=== PATIENT | male | born 1980 | race African-American/Black ===

== ENCOUNTER 2021-07-11 15:30 | Emergency (ER) | payer MEDICAID, SELFPAY ==
--- NOTE | 2021-07-11 | ECG_ITS ---
Test Reason : CHEST PAIN Blood Pressure : / mmHG Vent. Rate : 074 BPM Atrial Rate : 074 BPM P-R Int : 154 ms QRS Dur : 090 ms QT Int : 392 ms P-R-T Axes : 055 035 048 degrees QTc Int : 435 ms Normal sinus rhythm Possible Lateral infarct , age undetermined Inferior infarct (cited on or before 18-JUL-2020) Abnormal ECG When compared with ECG of 02-AUG-2020 04:57, Left anterior fascicular block is no longer Present ST no longer elevated in Inferior leads Non-specific change in ST segment in Anterior leads T wave inversion no longer evident in Inferior leads T wave inversion no longer evident in Lateral leads Referred By: Generic ED Physician Electronically Signed By:ELENO OSBORN
--- NOTE | ~2021-07-11 | CT_ITS ---
EXAMINATION: CT ABDOMEN AND PELVIS WITHOUT CONTRAST CLINICAL INFORMATION: Hematuria and elevated creatinine COMPARISON: None TECHNIQUE: Multidetector volumetric imaging was performed from the superior aspect of the liver through the pubic symphysis. Sagittal and coronal reformatted images were obtained on the technologist's workstation. This CT examination was performed using dose optimization techniques as appropriate, variously including the following: *Automated exposure control *Adjustment of mA and/or kV according to patient size (this includes techniques or standardized protocols for targeted exams where dose is matched to indication/reason for exam; i.e. extremities or head) *Use of iterative reconstruction technique DLP: 721 mGy-cm FINDINGS: LUNG BASES: The visualized lung bases are unremarkable. LIVER, GALLBLADDER, AND BILIARY TREE: The liver is normal in size, shape, and attenuation. No focal hepatic lesion or biliary ductal dilatation is present. The gallbladder is unremarkable with no evidence of radiopaque gallstones, gallbladder wall thickening, or obvious pericholecystic inflammatory changes. PANCREAS: Unremarkable. SPLEEN: Unremarkable. ADRENAL GLANDS: Unremarkable. KIDNEYS AND URETERS: The kidneys are normal in size, shape, and attenuation. No hydronephrosis, hydroureter, or calculi seen. No perinephric stranding. BLADDER: Unremarkable. GASTROINTESTINAL TRACT: The small and large bowel are unremarkable. The appendix is unremarkable. ABDOMINAL WALL: No significant hernia is appreciated. LYMPH NODES: Normal. VASCULAR: Unremarkable. PELVIC VISCERA: Unremarkable. OSSEOUS STRUCTURES: Unremarkable. CT/CT abdomen pelvis wo con IMPRESSION: No significant abnormality.
--- NOTE | ~2021-07-11 | XR_ITS ---
EXAMINATION: XR CHEST CLINICAL INFORMATION: Chest pain. COMPARISON: Chest done on 08/02/2020. TECHNIQUE: Frontal view of the chest was obtained. FINDINGS: No significant abnormality is noted involving the heart, lungs, mediastinum, bony thorax or soft tissues. XR/XR chest 1V IMPRESSION: Unremarkable examination.
[2021-07-11 15:34] VITALS: BP 140/79; PULSE 83; RESP 20; TEMP 37.1; O2SAT 96; BMI 36.2
[2021-07-11 16:00] VITALS: PULSE 73; RESP 18; O2SAT 100
[2021-07-11 16:21] LABS: MANUAL DIFF FLAG NO
[2021-07-11 16:22] LABS: Basophils Percent Auto 0.2 % (0-2); Eosinophils Absolute Auto 0.1 X10*3/uL (0.0-0.4); Eosinophils Percent Auto 0.6 % (0-4); Hematocrit 45.7 % (42-52); Hemoglobin 15.3 g/dl (14.0-18.0); Imm Gran Abs Auto 0.03 X10*3/uL (0.00-0.03); Imm Gran Pct Auto 0.3 % (0.0-0.4); Lymphocytes Absolute Auto 1.9 X10*3/uL (1.2-4.9); Lymphocytes Percent Auto 17.2 % (20-40); Mean Corpuscular HGB Conc 33.5 g/dl (31.0-36.0); Mean Corpuscular Volume 86.7 fL (80-98); Mean Platelet Volume 9.5 fL (9.4-12.4); Neutrophils Absolute Auto 7.9 X10*3/uL (2.0-8.3); Neutrophils Percent Auto 72.7 % (45-73); Platelet Count 277 X10*3/uL (160-400); Red Blood Count 5.27 X10*6/uL (4.60-5.80); Red Cell Distribution Width 13.3 % (11.0-16.0); White Blood Count 10.8 X10*3/uL (4.8-10.8)
--- NOTE | 2021-07-11 16:35 | ED.CHESTPAIN ---
HPI - Chest Pain General Chief Complaint: Chest Pain Stated Complaint: chest pain Time Seen by Provider: 07/11/21 16:14 Source: patient Mode of arrival: ambulatory Limitations: no limitations History of Present Illness HPI narrative: Patient comes emergency room complaining of chest pain. Patient states yesterday around 16:00 he started having right-sided arm numbness and tingling, subsequently substernal chest pain, intense GERD sensation. Patient called the ambulance, was taken to [facility]. Patient states that he waited too long to be seen, left before being seen, walked to [facility]. Patient states the waiting time was very long, and was not seen either. Patient states the chest pain has been intermittent since yesterday, at this time 04/06. Yesterday in the afternoon patient took 2 nitroglycerin tablets. Today he did not take any medication. 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 Patient states that he is supposed to be on medications for his heart but is not taking anything other than nitroglycerin p.r.n.. Related Data Allergies Allergy/AdvReac Type Severity Reaction Status Date / Time Penicillins [PENICILLINS] Allergy Severe BLOODY Verified 07/11/21 15:39 STOOL Review of Systems Review of Systems: Constitutional : No Weight loss, No Fever, No Chills, No Night Sweats, No Fatigue, No Malaise ENT/Mouth : No Hearing loss, No Ear Pain, No Nasal Congestion, No Sinus Pain, No Hoarseness, No sore throat, No Rhinorrhea, No Swallowing Difficulty Eyes: No Eye Pain, No Swelling, No Redness, No Foreign Body, No Discharge, No Vision Changes Cardiovascular : Complaining of right arm numbness and tingling, substernal chest pain, No SOB, No Dyspnea on Exertion, No Orthopnea, No Edema, No Palpitations Respiratory : No Cough, No Sputum, No Wheezing, No Smoke Exposure, No Dyspnea Gastrointestinal : No Nausea, No Vomiting, No Diarrhea, No Constipation, No abdominal Pain, No Hematochezia, No Melena Genitourinary : no irregular bleeding, No Dysuria, No Urinary Frequency, No Hematuria, No Urinary Incontinence, No Urgency, No Flank Pain, No Urinary Flow Changes, No Hesitancy Musculoskeletal : No joint pain, No Myalgias, No Joint Swelling Skin : No Skin Lesions, No rash Neuro : No Weakness, No Numbness, No Paresthesias, No Loss of Consciousness, No Dizziness, No Headache Psych : No Anxiety/Panic, No Depression, No SI/HI/AH/VH, No Social Issues, Heme/Lymph: No Bruising, No Bleeding,No Lymphadenopathy Endocrine : No Polyuria, No Polydipsia, No Temperature Intolerance [facility] Past Medical History Medical History FH: heart attack Hypertension Social History Social History Alcohol intake: current Alcohol intake frequency: 0-2 drinks per day Alcohol type: beer, wine and hard liquor Patient Tobacco Use Status: Current everyday Tobacco user Smoked in Last 30 Days: Yes Use of substances other than those prescribed or required for medical reasons: Yes Substance Use Type: Crack/Cocaine and Marijuana Substance Use Frequency: Daily Last Used Substance: Unknown Advance Directives: No Advance Directives Information Provided: Yes Physical Exam Vital Signs: Vital Signs: Last Vital Signs Temp 98.7 F 07/11/21 15:34 Pulse 68 07/11/21 18:00 Resp 18 07/11/21 18:00 BP 140/79 H 07/11/21 15:34 Pulse Ox 100 07/11/21 16:00 Body Mass Index 36.2 Const: Other: Appearance: Alert. Oriented X3. No acute distress. Eyes: Pupils equal, round and reactive to light. ENT: Pharynx normal. Neck: Normal inspection. Neck supple. No lymph nodes noted. No crepitus CVS: Normal heart rate and rhythm. Pulses normal. Normal S1 and S2 Respiratory: No respiratory distress. Breath sounds normal. No Wheezing. No rales Abdomen: Soft and nontender. No rigidity. No distention. good BS x4 Skin: Skin warm and dry. Normal skin color. Normal skin turgor. Extremities: No lower extremity edema. No Lacerations. No Rash Neuro: Oriented X 3. No motor deficit. No sensory deficit. Moving all extermities. No slurred speech. Course Course Course Narrative: On arrival, patient complaining of 5/10 chest pain. Patient accepted take aspirin but declined taking nitroglycerin Patient's troponin it is stable. Due to patient's high risk history, will go ahead and repeat troponin at 19:15. Also, I discussed with the patient that he does have microscopic blood in the urine, also his creatinine levels increased from baseline. I discussed with the patient that we will obtain a CT scan to rule out an ureter obstruction Patient that the elevated creatinine is likely secondary to dehydration. Patient declined IV fluids. Patient states that he needs to get home as soon as possible, he has a 2-year-old and 2-month-old baby at home and he is the only caregiver, the neighbors are baby-sitting. This time, patient no longer having chest pain, only complaining of bilateral lower extremity cramping, I discussed with the patient that the cramping is also associated with dehydration. Once again, patient declined fluids Chest pain likely secondary from coronary vasospasms due to cocaine use. MDM - Chest Pain Lab Data Result diagrams: 07/11/21 16:16 07/11/21 16:16 Labs: Lab Results 07/11/21 07/11/21 07/11/21 Range/Units 16:16 16:16 16:16 WBC 10.8 (4.8-10.8) X10*3/uL RBC 5.27 (4.60-5.80) X10*6/uL Hgb 15.3 (14.0-18.0) g/dl Hct 45.7 (42-52) % MCV 86.7 (80-98) fL MCH 29.0 (27.0-33.0) pg MCHC 33.5 (31.0-36.0) g/dl RDW 13.3 (11.0-16.0) % Plt Count 277 (160-400) X10*3/uL MPV 9.5 (9.4-12.4) fL Immature Gran % (Auto) 0.3 (0.0-0.4) % Neut % (Auto) 72.7 (45-73) % Lymph % (Auto) 17.2 L (20-40) % [place] % (Auto) 9.0 (2-11) % Eos % (Auto) 0.6 (0-4) % Baso % (Auto) 0.2 (0-2) % Lymph # (Auto) 1.9 (1.2-4.9) X10*3/uL [place] # (Auto) 1.0 (0.1-1.2) X10*3/uL Eos # (Auto) 0.1 (0.0-0.4) X10*3/uL Baso # (Auto) 0.0 (0.0-0.2) X10*3/uL Abs Immat Gran (auto) 0.03 (0.00-0.03) X10*3/uL Absolute Neuts (auto) 7.9 (2.0-8.3) X10*3/uL Absolute Nucleated RBC 0.000 (0.0-0.012) X10*3/uL Nucleated RBC % (auto) 0.0 (0.0-0.2) /100WBC Sodium 137 (135-145) mmol/L Potassium 3.5 (3.3-5.1) mmol/L Chloride 101 (96-108) mmol/L Carbon Dioxide 24 (22-29) mmol/L Anion Gap 16 (12-20) BUN 34 H (9-16) mg/dL Creatinine 2.27 H (0.5-1.4) mg/dL Estim Creat Clear Calc 55.9 Estimated GFR 32 Random Glucose 125 H (60-115) mg/dL Calcium 9.7 (8.4-10.2) mg/dL Total Bilirubin 0.8 (0.0-1.0) mg/dL AST 91 H (5-37) U/L ALT 39 (0-40) U/L Alkaline Phosphatase 72 (39-117) U/L Troponin I High Sens 5.2 (<3.5-35.0) ng/L Total Protein 8.2 H (6.5-8.0) g/dL Albumin 4.5 (3.5-5.0) g/dL Lipase 97 H (8-78) U/L Urine Color Urine Appearance Urine pH (5.0-8.0) Ur Specific [place] (1.005-1.025) Urine Protein (NEG-TRACE) MG/DL Urine Glucose (UA) (NEG) MG/DL Urine Ketones (NEG) MG/DL Urine Blood (NEG) Urine Nitrite (NEG) Ur Leukocyte Esterase (NEG) Urine RBC (0) /HPF Urine WBC (0-4) /HPF Ur Squamous Epith Cells /LPF Urine Bacteria /LPF Hyaline Casts /LPF Granular Casts /LPF Urine Opiates Screen (Not Detect) Urine Fentanyl Screen (Not Detect) Ur Barbiturates Screen (Not Detect) Ur Phencyclidine Scrn (Not Detect) Ur Amphetamines Screen (Not Detect) U Benzodiazepines Scrn (Not Detect) Urine Cocaine Screen (Not Detect) U Marijuana (THC) Screen (Not Detect) Ethyl Alcohol mg/dL 07/11/21 07/11/21 07/11/21 Range/Units 16:16 16:16 16:16 WBC (4.8-10.8) X10*3/uL RBC (4.60-5.80) X10*6/uL Hgb (14.0-18.0) g/dl Hct (42-52) % MCV (80-98) fL MCH (27.0-33.0) pg MCHC (31.0-36.0) g/dl RDW (11.0-16.0) % Plt Count (160-400) X10*3/uL MPV (9.4-12.4) fL Immature Gran % (Auto) (0.0-0.4) % Neut % (Auto) (45-73) % Lymph % (Auto) (20-40) % [place] % (Auto) (2-11) % Eos % (Auto) (0-4) % Baso % (Auto) (0-2) % Lymph # (Auto) (1.2-4.9) X10*3/uL [place] # (Auto) (0.1-1.2) X10*3/uL Eos # (Auto) (0.0-0.4) X10*3/uL Baso # (Auto) (0.0-0.2) X10*3/uL Abs Immat Gran (auto) (0.00-0.03) X10*3/uL Absolute Neuts (auto) (2.0-8.3) X10*3/uL Absolute Nucleated RBC (0.0-0.012) X10*3/uL Nucleated RBC % (auto) (0.0-0.2) /100WBC Sodium (135-145) mmol/L Potassium (3.3-5.1) mmol/L Chloride (96-108) mmol/L Carbon Dioxide (22-29) mmol/L Anion Gap (12-20) BUN (9-16) mg/dL Creatinine (0.5-1.4) mg/dL Estim Creat Clear Calc Estimated GFR Random Glucose (60-115) mg/dL Calcium (8.4-10.2) mg/dL Total Bilirubin (0.0-1.0) mg/dL AST (5-37) U/L ALT (0-40) U/L Alkaline Phosphatase (39-117) U/L Troponin I High Sens (<3.5-35.0) ng/L Total Protein (6.5-8.0) g/dL Albumin (3.5-5.0) g/dL Lipase (8-78) U/L Urine Color YELLOW Urine Appearance HAZY Urine pH 6.0 (5.0-8.0) Ur Specific [place] 1.025 (1.005-1.025) Urine Protein NEG (NEG-TRACE) MG/DL Urine Glucose (UA) NEG (NEG) MG/DL Urine Ketones NEG (NEG) MG/DL Urine Blood 3+ H (NEG) Urine Nitrite NEG (NEG) Ur Leukocyte Esterase NEG (NEG) Urine RBC 30-49 H (0) /HPF Urine WBC 0-2 (0-4) /HPF Ur Squamous Epith Cells 2+ /LPF Urine Bacteria NONE /LPF Hyaline Casts 1-4 /LPF Granular Casts 0-2 /LPF Urine Opiates Screen Not Detected (Not Detect) Urine Fentanyl Screen Not Detected (Not Detect) Ur Barbiturates Screen Not Detected (Not Detect) Ur Phencyclidine Scrn Not Detected (Not Detect) Ur Amphetamines Screen Not Detected (Not Detect) U Benzodiazepines Scrn Not Detected (Not Detect) Urine Cocaine Screen POSITIVE H (Not Detect) U Marijuana (THC) Screen POSITIVE H (Not Detect) Ethyl Alcohol < 10 mg/dL 07/11/21 Range/Units 19:11 WBC (4.8-10.8) X10*3/uL RBC (4.60-5.80) X10*6/uL Hgb (14.0-18.0) g/dl Hct (42-52) % MCV (80-98) fL MCH (27.0-33.0) pg MCHC (31.0-36.0) g/dl RDW (11.0-16.0) % Plt Count (160-400) X10*3/uL MPV (9.4-12.4) fL Immature Gran % (Auto) (0.0-0.4) % Neut % (Auto) (45-73) % Lymph % (Auto) (20-40) % [place] % (Auto) (2-11) % Eos % (Auto) (0-4) % Baso % (Auto) (0-2) % Lymph # (Auto) (1.2-4.9) X10*3/uL [place] # (Auto) (0.1-1.2) X10*3/uL Eos # (Auto) (0.0-0.4) X10*3/uL Baso # (Auto) (0.0-0.2) X10*3/uL Abs Immat Gran (auto) (0.00-0.03) X10*3/uL Absolute Neuts (auto) (2.0-8.3) X10*3/uL Absolute Nucleated RBC (0.0-0.012) X10*3/uL Nucleated RBC % (auto) (0.0-0.2) /100WBC Sodium (135-145) mmol/L Potassium (3.3-5.1) mmol/L Chloride (96-108) mmol/L Carbon Dioxide (22-29) mmol/L Anion Gap (12-20) BUN (9-16) mg/dL Creatinine (0.5-1.4) mg/dL Estim Creat Clear Calc Estimated GFR Random Glucose (60-115) mg/dL Calcium (8.4-10.2) mg/dL Total Bilirubin (0.0-1.0) mg/dL AST (5-37) U/L ALT (0-40) U/L Alkaline Phosphatase (39-117) U/L Troponin I High Sens 5.1 (<3.5-35.0) ng/L Total Protein (6.5-8.0) g/dL Albumin (3.5-5.0) g/dL Lipase (8-78) U/L Urine Color Urine Appearance Urine pH (5.0-8.0) Ur Specific [place] (1.005-1.025) Urine Protein (NEG-TRACE) MG/DL Urine Glucose (UA) (NEG) MG/DL Urine Ketones (NEG) MG/DL Urine Blood (NEG) Urine Nitrite (NEG) Ur Leukocyte Esterase (NEG) Urine RBC (0) /HPF Urine WBC (0-4) /HPF Ur Squamous Epith Cells /LPF Urine Bacteria /LPF Hyaline Casts /LPF Granular Casts /LPF Urine Opiates Screen (Not Detect) Urine Fentanyl Screen (Not Detect) Ur Barbiturates Screen (Not Detect) Ur Phencyclidine Scrn (Not Detect) Ur Amphetamines Screen (Not Detect) U Benzodiazepines Scrn (Not Detect) Urine Cocaine Screen (Not Detect) U Marijuana (THC) Screen (Not Detect) Ethyl Alcohol mg/dL Imaging Data CT scan - abdomen: Radiologist's impression: FINDINGS: LUNG BASES: The visualized lung bases are unremarkable.? LIVER, GALLBLADDER, AND BILIARY TREE: The liver is normal in size, shape, and attenuation. No focal hepatic lesion or biliary ductal dilatation is present. The gallbladder is unremarkable with no evidence of radiopaque gallstones, gallbladder wall thickening, or obvious pericholecystic inflammatory changes.? PANCREAS: Unremarkable.? SPLEEN: Unremarkable.? ADRENAL GLANDS: Unremarkable.? KIDNEYS AND URETERS: The kidneys are normal in size, shape, and attenuation. No hydronephrosis, hydroureter, or calculi seen. No perinephric stranding. ? BLADDER: Unremarkable.? GASTROINTESTINAL TRACT: The small and large bowel are unremarkable. The appendix is unremarkable.? ABDOMINAL WALL: No significant hernia is appreciated.? LYMPH NODES: Normal. VASCULAR: Unremarkable. PELVIC VISCERA: Unremarkable.? OSSEOUS STRUCTURES: Unremarkable.? CT/CT abdomen pelvis wo con IMPRESSION: No significant abnormality.? Discharge Plan Discharge Clinical Impression: Atypical chest pain, Dehydration, Cocaine substance abuse Patient Disposition: Home, Self-Care Instructions: Chest Pain (ED), Polysubstance Abuse (ED) Additional Instructions: Please drink plenty of fluids, especially with electrolytes such as Gatorade, Powerade or Pedialyte. Please follow-up with her primary care physician for lab recheck. Please follow-up with your primary care physician tomorrow. If you have any worsening or new symptoms, please return to the emergency room or call 911
[2021-07-11] MEDS: Aspirin Enteric Coated 325 MG TABLET.DR PO (16:42)
--- NOTE | 2021-07-11 16:46 | ECG_ITS ---
Test Reason : REPEAT CP Blood Pressure : / mmHG Vent. Rate : 063 BPM Atrial Rate : 063 BPM P-R Int : 166 ms QRS Dur : 092 ms QT Int : 410 ms P-R-T Axes : 033 022 026 degrees QTc Int : 419 ms Normal sinus rhythm Inferior infarct (cited on or before 18-JUL-2020) Abnormal ECG When compared with ECG of 11-JUL-2021 15:41, Nonspecific ST abnormality is no longer Present Referred By: Carey Rodriguez Electronically Signed By:ELENO OSBORN
[2021-07-11 16:49] LABS: Alanine Aminotransferase 39 U/L (0-40); Albumin Level 4.5 g/dL (3.5-5.0); Alkaline Phosphatase 72 U/L (39-117); Anion Gap 16 (12-20); Aspartate Amino Transferase 91 U/L (5-37); Bilirubin Total 0.8 mg/dL (0.0-1.0); Blood Urea Nitrogen 34 mg/dL (9-16); Calcium 9.7 mg/dL (8.4-10.2); Carbon Dioxide 24 mmol/L (22-29); Chloride 101 mmol/L (96-108); Creatinine Clr Calc Pharmacy 55.9; Estimated Glomerular Filt Rate 32; Glucose Random 125 mg/dL (60-115); Lipase 97 U/L (8-78); Potassium 3.5 mmol/L (3.3-5.1); Sodium 137 mmol/L (135-145); Total Protein 8.2 g/dL (6.5-8.0)
[2021-07-11 16:52] LABS: Glucose Urine UA NEG (NEG); Leukocyte Esterase Urine NEG (NEG); Nitrite Urine NEG (NEG); Specific Gravity - Urine 1.025 (1.005-1.025); UACC Culture Trigger NO; Urine Blood 3+ (NEG); Urine Ketones NEG (NEG); Urine Protein NEG (NEG-TRACE)
[2021-07-11 16:55] LABS: Appearance Urine HAZY; Color Urine YELLOW; Troponin-I High Sensitivity 5.2 ng/L (<3.5-35.0)
[2021-07-11 17:00] LABS: Granular Casts Urine 0-2 /LPF; RBC Urine 30-49 /HPF (0); Squamous Epithelial Cell Urine 2+ /LPF; WBC Urine 0-2 /HPF (0-4)
[2021-07-11 17:06] LABS: Ethanol < 10 mg/dL
[2021-07-11 17:23] LABS: Amphetamine Screen Urine Not Detected (Not Detect); Barbiturates, Urine Not Detected (Not Detect); Benzodiazepines Screen Urine Not Detected (Not Detect); Cannabinoid Screen Urine POSITIVE (Not Detect); Cocaine Screen Urine POSITIVE (Not Detect); Fentanyl, urine Not Detected (Not Detect); Opiate Screen Urine Not Detected (Not Detect); Phencyclidine Screen Urine Not Detected (Not Detect)
[2021-07-11 18:00] VITALS: PULSE 68; RESP 18
[2021-07-11 19:50] LABS: Troponin-I High Sensitivity 5.1 ng/L (<3.5-35.0)
== END 2021-07-11 20:16 | disposition home or self-care (01) ==
PROVIDERS: Emergency Provider Emergency Medicine; PCP Internal Medicine Geriatric Medicine
DX: R07.89 Other chest pain (principal); E86.0 Dehydration; F14.10 Cocaine abuse, uncomplicated; I10 Essential (primary) hypertension; F12.90 Cannabis use, unspecified, uncomplicated; F17.210 Nicotine dependence, cigarettes, uncomplicated
CPT/HCPCS: 36415; 71045; 74176; 80053; 80307; 81001; 82077; 83690; 84484; 85025; 93005; 99284; 99285

== ENCOUNTER 2021-09-30 18:21 | Outpatient (REF) | payer MEDICAID, SELFPAY ==
--- NOTE | ~2021-09-30 | MR_ITS ---
EXAMINATION: MR LUMBAR SPINE WITHOUT CONTRAST CLINICAL INFORMATION: Worsening pain and weakness on left side. COMPARISON: MRI dated 02/04/2020. TECHNIQUE: MRI of the lumbar spine was obtained using routine sequences without contrast. FINDINGS: VERTEBRAL BODIES AND PARASPINAL STRUCTURES: Mild endplate edematous changes are lateralized to the left side at the L4-L5 level, new compared to prior imaging. Reduced intradiscal signal and mild endplate spurring again visible at the L3-L4 and L4-L5 levels. The remaining discs are well hydrated. The marrow signal is within normal limits. There are no compression fractures. Slight retrosubluxation is stable at the L4-L5 level as well. The paraspinal soft tissues are unremarkable. The imaged bony pelvis appears normal. CONUS MEDULLARIS AND CAUDA EQUINA: Normal, terminating at the level of L1. No lower cord signal abnormality seen. The cauda equina nerve roots are normal. SPINAL LEVELS: L1-L2 and L2-L3: Well hydrated normal appearance of the discs without central canal stenosis or foraminal narrowing. L3-L4: Disc degeneration as on prior imaging with a right foraminal disc protrusion severely compressing the right L3 nerve root, worsened compared to previous imaging with increased size of the disc protrusion resulting in moderate right foraminal encroachment. No central canal stenosis. Mild facet arthropathy. L4-L5: Mild retrosubluxation and disc degeneration with a shallow right subarticular zone disc protrusion, also mildly increased in size and slightly impressing upon the right L4 nerve root. Mild facet arthropathy without central canal stenosis. Mild bilateral foraminal narrowing. L5-S1: No disc pathology. Mild facet arthrosis. Patent central canal and foramina. MR/MR lumbar spine wo con IMPRESSION: 1. Increased size of a right foraminal disc protrusion at the L3-L4 level severely compressing the right L3 nerve root with moderate right foraminal encroachment. 2. New mild endplate edema lateralized at the left side at the L4-L5 level with a slight retrosubluxation and stable disc degeneration. Small right subarticular zone disc protrusion is mildly increased in size with mild impression upon the right L5 nerve root. Mild bilateral foraminal narrowing.
== END 2021-09-30 18:22 | disposition home or self-care (01) ==
LOC: HO.MRI 18:21
PROVIDERS: PCP Internal Medicine Geriatric Medicine; Visit Provider Registered Nurse Community Health
DX: M54.42 Lumbago with sciatica, left side (principal)
CPT/HCPCS: 72148

== ENCOUNTER → 2022-06-02 10:09 | Outpatient (REF) | payer MEDICAID, SELFPAY | LOC: HO.CARD 10:09 | PROVIDERS: Visit Provider Internal Medicine | DX: I25.10 Atherosclerotic heart disease of native coronary artery without angina pectoris (principal); I10 Essential (primary) hypertension; I49.3 Ventricular premature depolarization; F14.10 Cocaine abuse, uncomplicated; G47.33 Obstructive sleep apnea (adult) (pediatric) | CPT/HCPCS: 93005; 99202 ==

== ENCOUNTER → 2022-06-25 12:53 | Outpatient (REF) | payer MEDICAID, SELFPAY ==
--- NOTE | 2022-06-25 12:58 | ECG_ITS ---
Hook-up date: 2022-06-25 12:20:00 Duration: 47:59:00 Test Indications: PVC'S Medications: 605333 QRS complexes 2665 Ventricular ectopics which represent 1 % of total QRS comp. 6 Supraventricular ectopics which represent <1 % of total QRS comp. * Paced QRS complexs which represent % of total QRS comp. VENTRICULAR ECTOPY 2647 Isolated 18 Bigeminal Cycles 4 Couplets 1 Runs 10 Beats in Runs 10 Beats LONGEST at 77 BPM at 03:55:26 2022-06-27 10 Beats FASTEST at 77 BPM at 03:55:26 2022-06-27 SUPRAVENTRICULAR ECTOPY 6 Isolated 0 Couplets 0 Runs 0 Beats in Runs * Beats LONGEST at * BPM at :: -- * Beats FASTEST at * BPM at :: -- HEART RATES 43 MIN at 22:17:14 2022-06-25 53 AVG 120 MAX at 13:28:42 2022-06-25 LONGEST RR 1.5680 secs at 04:56:33 2022-06-26 S-T LEVELS Channel 1 - 128 mm at 12:20:00 2022-06-25 - 128 mm at 12:20:00 2022-06-25 Channel 2 - 128 mm at 12:20:00 2022-06-25 - 128 mm at 12:20:00 2022-06-25 Channel 3 - 128 mm at 03:13:91 -- - 128 mm at 03:13:91 Underlying rhythm is sinus; Average ventricular rate 53/min; range 43-120/min; About 62% of the time, rate <60/min; Frequent ventricular ectopy; 2 morphologies; 4 couplets, total burden 2%; one run of 10 beats; . Referred By: Reginald Gonzáles Overread By: REGINALD GONZÁLES
== END ==
LOC: HO.CARD 12:53
PROVIDERS: Visit Provider Internal Medicine
DX: I49.3 Ventricular premature depolarization (principal)
CPT/HCPCS: 93226

== ENCOUNTER → 2022-07-20 07:42 | Outpatient (REF) | payer MEDICAID, SELFPAY ==
--- NOTE | ~2022-07-20 | NM_ITS ---
Lexiscan Myocardial perfusion study Indication: Chest pain, assess for coronary disease and ischemia Technique: The patient was brought in for a Lexiscan perfusion study on 07/20/2022 and was injected 0.4 mg of Lexiscan intravenously. Within a minute of this injection 35 mCi of sestamibi was given intravenously. Images were obtained using the SPECT gamma camera interlaced with the gating device. Images were obtained in supine position. Resting perfusion study was performed on 07/26/2022. Patient was administered 35 mCi of sestamibi intravenously at rest. Images were then obtained in supine position. Total DLP 121mGy-cm. Images were processed with the software and compared side to side in short axis, horizontal long axis and vertical long axis views. Findings: Raw acquisition reviewed. The stress perfusion study showed severely reduced to absent tracer uptake in the midportion of inferior and inferolateral wall. There seems to be some perfusion at the basal inferior wall. Only mild perfusion defect towards the distal part of inferior wall. Not much change with CT attenuation correction. The gated study shows normal LV systolic function with calculated LVEF of 57%. LV cavity is normal in size. The gated study shows mid inferior/inferolateral akinesis. Resting study shows similar diminished to absent tracer uptake in the mid inferior/inferolateral wall. Gating at rest reveals mid inferior akinesis and ejection fraction at 54%. The findings are consistent with fixed defect in the mid inferior/inferolateral wall. Some reversibility towards the distal inferior wall. NM/NM cardiolite stress test Impression: 1. 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 2. Gated LVEF is 63% during stress and 54% during rest. 3. Transient ischemic dilatation not present. EKG component of the test reported separately.
--- NOTE | 2022-07-20 07:46 | CA_ITS ---
Transthoracic Echocardiogram Patient (Last, First, Middle): Mat Trujillo, Gender: Male Date of : 1980 Age: 41 Procedure Date: 07/20/2022 Procedure Type: Transthoracic Echocardiogram Location: OP Height: 180.34 cm Weight: 117.94 kg BSA: 2.36 m2 Heart Rate: 45 bpm BP: 130 / 80 mmHg Board Setter: SB Referring MD: Ag Patel MD Symptoms: I25.10 - Atherosclerotic heart disease of [place] coronary artery without... Study Quality: Adequate ECG Rhythm: Bradycardia Conclusions: - The left ventricular systolic function is normal. The calculated ejection fraction is 57% by biplane method. - The inferolateral wall and basal inferior segment are hypokinetic. - No obvious valvular pathology seen on this study. Findings Left Ventricle Normal left ventricular cavity size. There is mildly increased left ventricular wall thickness. The left ventricular systolic function is normal. The calculated ejection fraction is 57% by biplane method. There is no evidence of regional wall motion abnormalities. Diastolic function is normal for age. LV peak GLS -18.6%. Wall Motion Rest Echo Findings The inferolateral wall and basal inferior segment are hypokinetic. Right Ventricle Normal right ventricular cavity size and systolic function. Atria Both atria are normal in size. Aortic Valve There is a normal trileaflet aortic valve. There is no aortic valve stenosis. There is no aortic valve regurgitation. Mitral Valve The mitral valve appears normal. There is no mitral valve regurgitation. There is no mitral valve stenosis. Pulmonic Valve There is trace pulmonic valve regurgitation. Tricuspid Valve Normal tricuspid valve structure. There is no tricuspid valve regurgitation. Tricuspid regurgitation envelope is inadequate for calculation of right ventricular systolic pressure. Great Vessels The aortic annulus, sinuses of valsalva, and asc aorta are normal in size. Venous The inferior vena cava is normal in size and collapses greater than 50% with inspiration. Pericardium/Pleural There is no evidence of pericardial effusion. Prior Study Comparison No prior study available for comparison. Recommendations, Care & Conclusions No obvious valvular pathology seen on this study. Measurements 2D Linear Measurements IVSd: 1.22 0.6-0.9/0.6-1.0 cm LVIDd: 5.34 3.9-5.3/4.2-5.9 cm LVIDd Index: 2.26 2.4-3.2/2.2-3.1 cm/m2 LVIDs: 3.13 2.0-3.6 cm LVPWd: 1.03 0.7-1.1 cm LA Diam: 3.80 2.7-3.8/3.0-4.0 cm LAIDs Index: 1.61 1.5-2.3 cm/m2 LV Mass: 296.37 67-162/88-224 g LV Mass Index: 125.58 43-95/49-115 g/m2 LVOT Diam: 2.40 3.0+(-)1.3 cm 2D Systolic Function EF 4C: 55.70 >55% EF 2C: 61.50 >55% EF BiP: 57.10 >55% Mitral Valve MV Pk E: 0.95 MV PK A: 0.46 MV Decel Time: 198.00 E/A: 2.10 E'Lateral: 11.70 E'Medial: 6.64 E/E' Med: 14.30 E/E' Lat: 8.10 PHT: 58.00 MVA PHT: 3.79 Decel Nelson: 4.80 Aortic Valve AoV Pk Zeeshan: 1.13 AoV Mn Zeeshan: 0.78 AoV VTI: 0.26 AoV Pk Grad: 5.00 Aov Mn Grad: 3.00 JESSICA Cont.VTI: 4.26 LVOT LVOT Pk Zeeshan: 1.08 LVOT Mn Zeeshan: 0.77 LVOT VTI: 0.24 LVOT Pk Grad: 5.00 LVOT Mn Grad: 3.00 LVOT Diam: 2.40 LVOT Area: 4.52 Diastolic Function MV Pk E: 0.95 MV Pk A: 0.46 E/A: 2.10 E'Medial: 6.64 E/E' Med: 14.30 E' Laterial: 11.70 E/E' Lat: 8.10 Right Ventricle TAPSE (mm): 22.90 TVS' Zeeshan: 13.80 Tricuspid Valve RA Press: 3.00 Great Vessels Aorta Sinus of Valsalva: 3.40 2.0-3.[address] Ridge: 3.11 1.7-3.4 cm Ao Asc: 3.00 2.1-3.4 cm Pulmonary Veins Pulm Vein S/D 1.50 Pulmonary Valve PV Pk Zeeshan: 1.03 Peak PV Grad: 4.00 Updated in Other Vendor System with Status of Final Ag Patel MD electronically signed on 07/21/2022 12:06:03 PM with status of Final
--- NOTE | 2022-07-20 07:46 | CA_ITS ---
Acquisition Time: 2022-07-20 09:27:44 Total Exercise Time: 00:06:15 Test Indications: R07.2 PRECORDIAL Medications: SEE H Protocol: SEVERO Max HR: 113 BPM 63% of Pred: 178 BPM Max BP: 176/070 mmHG Max Work Load: 7.3 METS Exercise stress test with exercise 6 min 15 sec of Severo protocol, achieving 62% MPHR and request to slow exercise due to sob and fatigue. EKG nondiagnostic due to suboptimal heart rate. Treadmill placed in recovery and slowed to 1 MPH for additional 3 min. Testing changed to pharmacological stress test with Lexiscan injection, with report of sob, and 5/10 tightness in left chest, with isolated PVCs, with normotensive response to injection, with nondiagnostic EKG for ischemia. In recovery he continued to report the chest tightness and was treated with Aminophylline 75mg IVP to reverse lexiscan with resolution of symptom. Nuclear images pending. Test reviewed with Dr Patel Referred By: Ag Patel Overread By: JEANETTE NAVARRO
== END ==
LOC: HO.CARD 07:42
PROVIDERS: Visit Provider Internal Medicine
DX: I25.10 Atherosclerotic heart disease of native coronary artery without angina pectoris (principal); R07.2 Precordial pain
CPT/HCPCS: 78452; 93017; 93306; 93356; A9500; J0280; J2785

== ENCOUNTER → 2022-09-16 12:32 | Outpatient (BNVA) | payer MEDICAID, SELFPAY | PROVIDERS: PCP Internal Medicine Geriatric Medicine; Referring Provider Internal Medicine Geriatric Medicine; Visit Provider Nurse Practitioner Family | DX: I25.10 Atherosclerotic heart disease of native coronary artery without angina pectoris (principal); I21.9 Acute myocardial infarction, unspecified; I10 Essential (primary) hypertension; I49.3 Ventricular premature depolarization; G47.33 Obstructive sleep apnea (adult) (pediatric); F14.10 Cocaine abuse, uncomplicated | CPT/HCPCS: 99212 ==

== ENCOUNTER 2024-09-05 11:52 | Outpatient (REF) | payer MEDICAID, SELFPAY ==
[2024-09-06 14:57] LABS: CT PCR NOT DETECTED (Not Detect.); NG PCR NOT DETECTED (Not Detect.)
== END 2024-09-05 11:53 | disposition home or self-care (01) ==
LOC: HO.HHCLNP 11:52
PROVIDERS: Visit Provider Internal Medicine Geriatric Medicine
DX: Z11.3 Encounter for screening for infections with a predominantly sexual mode of transmission (principal)
CPT/HCPCS: 87491; 87591

== ENCOUNTER 2024-09-07 08:27 | Outpatient (REF) | payer MEDICAID, SELFPAY ==
[2024-09-07 11:23] LABS: MANUAL DIFF FLAG NO
[2024-09-07 11:26] LABS: Basophils Percent Auto 0.4 % (0-2); Eosinophils Absolute Auto 0.1 X10*3/uL (0.0-0.4); Eosinophils Percent Auto 1.3 % (0-4); Hematocrit 45.4 % (42.0-52.0); Hemoglobin 14.8 g/dl (14.0-18.0); Imm Gran Abs Auto 0.01 X10*3/uL (0.00-0.03); Imm Gran Pct Auto 0.1 % (0.0-0.4); Lymphocytes Absolute Auto 1.8 X10*3/uL (1.2-4.9); Lymphocytes Percent Auto 26.3 % (20-40); Mean Corpuscular HGB Conc 32.6 g/dl (31.0-36.0); Mean Corpuscular Hemoglobin 29.1 pg (27.0-33.0); Mean Corpuscular Volume 89.4 fL (80.0-98.0); Mean Platelet Volume 10.4 fL (9.4-12.4); Monocytes Absolute Auto 0.4 X10*3/uL (0.1-1.2); Monocytes Percent Auto 6.5 % (2-11); Neutrophils Absolute Auto 4.4 x10*3/uL (2.0-8.3); Neutrophils Percent Auto 65.4 % (45-73); Platelet Count 232 X10*3/uL (160-400); Red Blood Count 5.08 X10*6/uL (4.60-5.80); Red Cell Distribution Width 12.5 % (11.0-16.0); White Blood Count 6.7 X10*3/uL (4.8-10.8)
[2024-09-07 11:45] LABS: Alanine Aminotransferase 29 U/L (0-40); Albumin Level 4.3 g/dL (3.5-5.0); Alkaline Phosphatase 60 U/L (39-117); Anion Gap 11 (12-20); Aspartate Amino Transferase 24 U/L (5-37); Bilirubin Total 0.4 mg/dL (0.0-1.0); Blood Urea Nitrogen 15 mg/dL (9-16); Calcium 9.8 mg/dL (8.4-10.2); Carbon Dioxide 25 mmol/L (22-29); Chloride 106 mmol/L (96-108); Cholesterol 222 mg/dL (<200); Estimated Glomerular Filt Rate > 60; Glucose Random 102 mg/dL (60-115); HDL Cholesterol 37 mg/dL (>40); LDL Cholesterol Calculated 163 mg/dL (<100); Potassium 4.4 mmol/L (3.3-5.1); Sodium 138 mmol/L (135-145); Total Protein 7.8 g/dL (6.5-8.0); Triglycerides 114 mg/dL (<150)
[2024-09-07 12:02] LABS: HBS Num1 0.16 mIU/mL (0-7.99); HBsAGNum1 0.36 S/CO (0.00-0.99); HIV AB/AG Nonreactive (Nonreactive); HIV Num 1 0.05 S/CO (0.00-0.99); Hepatitis B Surface Antigen Negative (Negative); ~HepC Num1 0.26 S/CO (0.00-0.79); ~Hepatitis B Surface Antibody NONREACTIVE (Nonreactive); ~Hepatitis C Antibody Nonreactive (Nonreactive)
[2024-09-11 12:43] LABS: RPR Rapid Plasma Reagin NON-REACTIVE (NON-REACTIVE)
== END 2024-09-07 08:28 | disposition home or self-care (01) ==
LOC: HO.HHCL 08:27
PROVIDERS: Visit Provider Internal Medicine Geriatric Medicine
DX: I25.10 Atherosclerotic heart disease of native coronary artery without angina pectoris (principal)
CPT/HCPCS: 36415; 80053; 80061; 85025; 86592; 86706; 86803; 87340; 87389

== ENCOUNTER 2024-12-05 09:49 | Outpatient (AMB) | payer OTHER, SELFPAY ==
--- NOTE | 2024-12-05 09:57 | A.OFFVIS_ITS ---
Vital Signs 12/05/24 09:58 Height 5 ft 11 in Weight 256 lb BMI 35.7 BP 141/79 H Blood Pressure Location Lt brachial Position Sitting Respiration 16 Pulse 57 Pulse Source Pulse Oximeter Pulse Oximetry (%) 98 Oxygen Delivery Method Room Air Intake Visit Reasons: Low back pain w radiation to lft leg Allergies Penicillins [PENICILLINS] Allergy (Severe, Verified 12/05/24 10:00) BLOODY STOOL Medication List - Last Reconciled 12/05/24 by Mechelle Maddox LPN albuterol sulfate 90 mcg/actuation (ProAir HFA) 2 puffs PO Q4-6H PRN aspirin 81 mg PO DAILY atorvastatin 40 mg PO BEDTIME lisinopril 5 mg PO DAILY risperidone (Risperdal) 1 mg PO BID HPI HPI Low back pain w radiation to lft leg: Details: 44-year-old male referred to us by [facility] for consideration of interventional therapy for lumbar radiculopathy. Patient describes pain in his left lower back that radiates down his left leg. He states that he has had this problem for several years and previously had physical therapy and injections for this problem. He had what sounds like epidural steroid injections that were helpful. At this time he appears to be having both back and leg pain. He had an MRI of the lumbar spine in 2020 which showed mild degenerative changes with a disc bulge at L4-5 and some early Modic changes with endplate edema at the superior endplate of L5. He states that he has bipolar disorder and has been on treatment with Depakote and gabapentin. Currently he is under control. He has also had heart attacks. He denies having received any stents but states that he is on dual antiplatelet therapy with aspirin and Brilinta. He does not have an active special weapons and tactics officer. On exam today: Appears afebrile. Alert and oriented. Mood and affect appropriate. Follows and participates in conversation appropriately. Respiratory effort is unlabored. Able to transition from sit to stand unassisted. Ambulates with bilaterally normal heel strike and toe off. Able to stand and walk on toes and heels. [facility] Medical History Atherosclerotic cardiovascular disease FH: heart attack Hypertension MARQUISE (obstructive sleep apnea) Family History Mother Stroke Hypertension Unknown Myocardial infarct Social History Alcohol intake: former Year quit: 2021 Patient Tobacco Use Status: Current everyday Tobacco user Cigarettes Per Day: 6 Substance Use Type: Crack/Cocaine and Marijuana Physical Exam Vital Signs: Last Vital Signs Pulse 57 12/05/24 09:58 Resp 16 12/05/24 09:58 BP 141/79 H 12/05/24 09:58 Pulse Ox 98 12/05/24 09:58 Oxygen Delivery Method Room Air 12/05/24 09:58 BMI result Body Mass Index 35.7 Results Reviewed Results Reviewed: [address] [address] Magnetic Resonance Report Signed Patient: Mat Trujillo MR#: [id number] : 1980 Acct:[id number] Age/Sex: 41 / M ADM Date: 09/30/21 Loc: HO.MRI Attending Dr: Jagruti Be NP Ordering Physician: Jagruti Be NP Date of Service: 09/30/21 Procedure(s): MR lumbar spine wo con Accession Number(s): [id number] cc: Jagruti Be NP~ EXAMINATION: MR LUMBAR SPINE WITHOUT CONTRAST CLINICAL INFORMATION: Worsening pain and weakness on left side. COMPARISON: MRI dated 02/04/2020. TECHNIQUE: MRI of the lumbar spine was obtained using routine sequences without contrast. FINDINGS: VERTEBRAL BODIES AND PARASPINAL STRUCTURES: Mild endplate edematous changes are lateralized to the left side at the L4-L5 level, new compared to prior imaging. Reduced intradiscal signal and mild endplate spurring again visible at the L3-L4 and L4-L5 levels. The remaining discs are well hydrated. The marrow signal is within normal limits. There are no compression fractures. Slight retrosubluxation is stable at the L4-L5 level as well. The paraspinal soft tissues are unremarkable. The imaged bony pelvis appears normal. CONUS MEDULLARIS AND CAUDA EQUINA: Normal, terminating at the level of L1. No lower cord signal abnormality seen. The cauda equina nerve roots are normal. SPINAL LEVELS: L1-L2 and L2-L3: Well hydrated normal appearance of the discs without central canal stenosis or foraminal narrowing. L3-L4: Disc degeneration as on prior imaging with a right foraminal disc protrusion severely compressing the right L3 nerve root, worsened compared to previous imaging with increased size of the disc protrusion resulting in moderate right foraminal encroachment. No central canal stenosis. Mild facet arthropathy. L4-L5: Mild retrosubluxation and disc degeneration with a shallow right subarticular zone disc protrusion, also mildly increased in size and slightly impressing upon the right L4 nerve root. Mild facet arthropathy without central canal stenosis. Mild bilateral foraminal narrowing. L5-S1: No disc pathology. Mild facet arthrosis. Patent central canal and foramina. MR/MR lumbar spine wo con IMPRESSION: 1. Increased size of a right foraminal disc protrusion at the L3-L4 level severely compressing the right L3 nerve root with moderate right foraminal encroachment. 2. New mild endplate edema lateralized at the left side at the L4-L5 level with a slight retrosubluxation and stable disc degeneration. Small right subarticular zone disc protrusion is mildly increased in size with mild impression upon the right L5 nerve root. Mild bilateral foraminal narrowing. Assessment & Plan Assessment & Plan (1) Lumbar radicular pain: Code(s): M54.16 - Radiculopathy, lumbar region Category: Medical Plan 44-year-old male with known intervertebral disc degenerative disease as well as vertebrogenic low back pain. I discussed epidural steroid injections with him and the fact that we would need clearance from a special weapons and tactics officer to hold his Brilinta for any neuraxial procedure. Upon hearing this patient felt frustrated that his injection could not be expedited. Subsequently he walked out of the office without agreeing with any particular plan. If he desires an epidural steroid injection in the future, I will be happy to see him back along with the appropriate clearances to hold his antiplatelet therapy for the intended procedure. Coding Level of Care Code New Pt Level 4 (99239) Diagnoses Lumbar radicular pain M54.16
[2024-12-05 09:58] VITALS: BP 141/79; PULSE 57; RESP 16; O2SAT 98; BMI 35.7
== END 2024-12-05 10:58 | disposition home or self-care (01) ==
PROVIDERS: PCP Internal Medicine Geriatric Medicine; Referring Provider Internal Medicine Geriatric Medicine; Visit Provider Internal Medicine
DX: M54.16 Radiculopathy, lumbar region (principal)
CPT/HCPCS: 99204

== ENCOUNTER → 2024-12-05 09:49 | Outpatient (BNVA) | payer OTHER, SELFPAY | PROVIDERS: PCP Internal Medicine Geriatric Medicine; Referring Provider Internal Medicine Geriatric Medicine; Visit Provider Internal Medicine | DX: M54.16 Radiculopathy, lumbar region (principal) | CPT/HCPCS: 99202 ==